=== PATIENT | female | born 1955 | race Caucasian/White ===

== ENCOUNTER → 2017-09-12 | Outpatient (CLI) | payer BC, OTHER ==
[~2017-09-12] VITALS: Ht 165.1 cm; Wt 65.8 kg
[~2017-09-12] MED LIST: HYDROCHLOROTH12.5 M2 PO; HYDROXYCHLOROQ200 M1 PO; NIFEDIPINE ER60 M1 PO; OMEPRAZOLE 20 M20 M1 PO
--- NOTE | ~2017-09-12 | PATH ---
[facility] [address] [place] [address] PATHOLOGY RPT PROCEDURE Name: KELIN FLANNERY Room #: REG [facility] Boom.#: [id number] Admission: 09/12/17 Date of : 59 Discharge: Report #: [id number] Path Case #: [id number] [facility] Accession Number: [id number] . 01 Material submitted: . LIVER BIOPSY . 01 Clinical history: . Elevated LFT's Rule out autoimmune hepatitis, BARTOLOME titer is 1:640, ASMA is 1:80, viral hepatitis markers negative, iron studies unremarkable, elevated alkaline phosphatase. . . . . 02 Diagnosis: Liver, needle core biopsy: - Mild mixed portal chronic inflammation with mild interface activity; no significant fibrosis present (please see comment). S/09/17/2017 . 02 Comment: Examination shows two needle core biopsies of liver with numerous portal tracts present for examination. The portal tracts show mixed portal chronic inflammation comprised of an occasional plasma cell, lymphocytes, as well as eosinophils. Sheets of plasma cells or lymphoid aggregates are not identified. Cholangitis is not identified. The interlobular bile ducts appear unremarkable where present. There is no bile ductular proliferation, or bile duct loss identified within the portal tracts. There are no hepatocyte rosettes identified. There are no florid duct lesions or sclerosing lesions of the bile ducts present. There are no granulomata as well. The lobules are unremarkable. There is no steatosis, or lobular lipogranulomata present. Cholestasis is not identified. The zone 1 hepatocytes show a lipofuscin pigment consistent with injury. The zone 3 central veins appear unremarkable. . Trichrome stain shows focal enlarged portal tracts with no evidence of periportal fibrosis, or bridging fibrosis present. Reticulin stain shows intact reticulum network. PAS with and without diastase show rare Kupffer cell macrophages and are negative for intracytoplasmic globules in zone 1. Iron stain is negative. . The findings are suggestive of mild chronic hepatitis. The presence of eosinophils within the infiltrate raises concern for a drug-induced type liver injury (potentially hypersensitivity type). Although the autoimmune markers are positive/elevated, correlation with peripheral eosinophil [address] [address] PATHOLOGY RPT PROCEDURE Name: KELIN FLANNERY [id number] Admission: 09/12/17 Date of : 59 Discharge: Report #: [id number] Path Case #: [id number] count, patient's medication regime is suggested. The morphological features are not entirely supportive of autoimmune hepatitis or autoimmune cholangitis. Sampling bias cannot be excluded. (IUV:carl; 09/17/2017) . 02 Electronically signed: . Nette Booker MD, Pathologist NPI- [id number] . 01 Gross description: . Received in formalin labeled "Kelin Flannery, liver BX," are 2 distinct needle cores of dark lindo soft tissue measuring 1.7 and 2.0 cm in length and less than 0.1 cm in diameter. The specimen is submitted entirely in cassette A1. (TSD; 09/12/2017) TOB/TOB . 02 Pathologist provided ICD-10: K76.9, K74.0 . 02 CPT . 990354, 354470, 100484, 106655, 197056, [id number] Performed at: [address], [place] [id number] MD Luis Reyes MD Phone: [phone] Performed at: [address] [id number] MD Nette Booker MD Phone: [phone]
[2017-09-12 08:24] VITALS: BP 144/80
[2017-09-12 08:43] LABS: HEMATOCRIT 40.2 % (37.0-47.0); HEMOGLOBIN 13.9 gm/dL (12.0-15.0); MCH 29.8 pg (26.0-34.0); MCHC 34.5 g/dL (28.0-37.0); MCV 86.6 fL (80.0-100.0); RBC 4.64 mil/uL (4.20-5.00); RDW 14.1 % (10.5-14.5); WBC 5.4 thou/uL (4.0-11.0)
[2017-09-12 09:08] LABS: CALCIUM 9.7 mg/dL (8.5-10.1); CREATININE 0.9 mg/dL (0.6-1.0); POTASSIUM 3.6 mmol/L (3.5-5.1); PROTIME 10.4 Seconds (9.3-11.4)
[2017-09-12 09:52] VITALS: BP 137/68
[2017-09-12 09:55] VITALS: BP 127/76
[2017-09-12 10:00] VITALS: BP 122/81
[2017-09-12 10:04] VITALS: BP 121/72
[2017-09-12 13:14] LABS: HEMATOCRIT 39.5 % (37.0-47.0); HEMOGLOBIN 13.5 gm/dL (12.0-15.0)
== END ==
LOC: ULTRA 08:01 → LAB 08:01 → ULTRA 11:48
PROVIDERS: Radiology Vascular & Interventional Radiology
DX: K73.9 Chronic hepatitis, unspecified (principal); Z98.51 Tubal ligation status; I10 Essential (primary) hypertension; Z98.890 Other specified postprocedural states; K21.9 Gastro-esophageal reflux disease without esophagitis; I34.0 Nonrheumatic mitral (valve) insufficiency; Z82.49 Family history of ischemic heart disease and other diseases of the circulatory system